=== PATIENT | male | born 1935 | race Caucasian/White ===

== ENCOUNTER 2016-10-07 08:36 | Emergency (ER) | payer MEDICARE, OTHER ==
[2016-10-07 09:09] VITALS: BP 169/71
--- NOTE | 2016-10-07 10:28 | RAD ---
HISTORY: Trauma to the first digit of the right foot COMPARISONS: May 06, 2016 VIEWS: 3, Frontal, lateral, and oblique views of the right foot FINDINGS: BONE DENSITY: Normal. BONES: There is no displaced fracture. There is remote posttraumatic deformity to the fifth metatarsal. There is no appreciable erosion or periosteal reaction. JOINTS: There is osteoarthritis of the first MTP and interphalangeal joint. . 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 ALIGNMENT: There is no dislocation. SOFT TISSUES: There is peripheral arterial calcification OTHER FINDINGS: None. IMPRESSION: 1. OSTEOARTHRITIS. 2. PERIPHERAL ARTERIAL DISEASE. 3. NO APPRECIABLE EROSION OR PERIOSTEAL REACTION. 4. NO ACUTE OSSEOUS INJURY. IF SYMPTOMS PERSIST, RECOMMEND REPEAT IMAGING
--- NOTE | 2016-10-07 11:33 | UC ---
Salina Aldrich SooYoung, [facility] on 10/07/16 at 0946 . Laceration HPI - HPI Summary HPI Summary: NOTE: Diabetic pt with 2.5 cm lac to R big toe. NURSE'S NOTE: this morning when getting out of the shower, pt stubbed right great toe on the floor and states he sliced it open and was bleeding profusely. his wrapped it up and he presents now with c/o right great toe laceration [ End ] IN ROOM NOTE: A 80 y/o M presents to [facility] [place] with c/o of lac to R big toe onset this AM. Pt states he stepped out of shower and hit his big toe. It split open and bled very heavily. The pt's wrapped his foot. He notes this happens somewhat often due to the neuropathy in his feet. Pert PMHx: DM, R foot fracture. - History Of Current Complaint Chief Complaint: UCLaceration Stated Complaint: TOE LAC Hx Obtained From: Patient, Family/Cloth Desizing Range Tender - Laceration Location: Toe - R great toe Mechanism Of Injury: Blunt Trauma Onset/Duration: Sudden Onset, Still Present Severity: Mild Pain Intensity: 0 - denies pain Pain Scale Used: 0-10 Numeric - Allergies/Home Medications Allergies/Adverse Reactions: Allergies Allergy/AdvReac Type Severity Reaction Status Date / Time No Known Allergies Allergy Verified 10/07/16 09:09 Home Medications: Home Medications Aspirin [Aspirin Childrens] 81 mg PO 10/07/16 [History] Simvastatin [Zocor 5 MG-] 5 mg PO DAILY 10/07/16 [History Confirmed 10/07/16] PMH/Surg Hx/FS Hx/Imm Hx Previously Healthy: No Endocrine History Of: Reports: Diabetes - INSULIN- LANTUS AND HUMALOG Denies: Thyroid Disease Cardiovascular History Of: Reports: Hypertension - ON MEDICATION FOR Denies: Cardiac Disorders Respiratory History Of: Denies: COPD, Asthma GI/ History Of: Denies: Ulcer - Surgical History Surgical History: Yes Surgery Procedure, Year, and Place: LEFT EYE CATARACT- 15 YEARS AGO- [facility] [place]. may 2016 - Family History Known Family History: Positive: Diabetes - Social History Occupation: Retired Lives: With Family Alcohol Use: Rare Substance Use Type: None Smoking Status (MU): Former Smoker Amount Used/How Often: PIPE X 3-4 PER DAY X 10 YEARS Have You Smoked in the Last Year: No When Did the Patient Quit Smoking/Using Tobacco: 1984 - Immunization History Most Recent Tetanus Shot: within 10 yrs Review of Systems Constitutional: Negative Skin: Negative Eyes: Negative ENT: Negative Respiratory: Negative Cardiovascular: Negative Gastrointestinal: Negative Genitourinary: Negative Motor: Negative Neurovascular: Negative Musculoskeletal: Other: - lac to great R toe Neurological: Negative Psychological: Negative All Other Systems Reviewed And Are Negative: Yes Physical Exam Triage Information Reviewed: Yes Appearance: Well-Appearing, No Pain Distress, Well-Nourished Vital Signs: Initial Vital Signs Temp 98.0 F 10/07/16 09:04 Pulse 77 10/07/16 09:04 Resp 16 10/07/16 09:04 BP 169/71 10/07/16 09:04 Pulse Ox 98 10/07/16 09:04 Vital Signs Reviewed: Yes Eyes: Positive: Conjunctiva Clear ENT: Positive: Hearing grossly normal, Pharynx normal, TMs normal. Negative: Muffled/hoarse voice Neck: Positive: Supple, No Lymphadenopathy Respiratory: Positive: Chest non-tender, Lungs clear, Normal breath sounds, No respiratory distress Cardiovascular: Positive: RRR, No Murmur Abdomen Description: Positive: Nontender, No Organomegaly, Soft Bowel Sounds: Positive: Present Musculoskeletal: Positive: Strength Intact, Other: - JAVED Neurological: Positive: Alert Psychological: Positive: Age Appropriate Behavior Skin: Positive: Other - 2.5 cm lac over dorsum of R big toe. Distal aspect of toe is slightly angulated volarly. There is a small spec of nail remaining on the toe. This is chronic. No signs of infection or swelling.. Negative: rashes Laceration Repair - Laceration Repair 1 Description: Linear Laceration Size After Repair: Length (cm) - 2.5 cm lac over dorsum of R big toe. Wound was open to approx 0.5 cm prior to closure. After adhesive was applied there was good approximation and hemostasis and less than 1 mm separation of wound edges. Cleansing Completed Via Routine Prep: Yes Irrigation With Pressure Irrigation Device: Yes Closure Material: Skin Adhesive Closure Method: Single Layer Diagnostics - Radiology FOOT XR Xray Interpretation: Positive (See Comments) - IMPRESSION: 1. OSTEOARTHRITIS. 2. PERIPHERAL ARTERIAL DISEASE. 3. NO APPRECIABLE EROSION OR PERIOSTEAL REACTION. 4. NO ACUTE OSSEOUS INJURY. IF SYMPTOMS PERSIST, RECOMMEND REPEAT IMAGING Radiology Interpretation Completed By: Radiologist Laceration Course/Dx - Course/Dx Course Of Treatment: MDM: laceration repair with adhesive. Non-adhesive dressing, splint and KATIE wrap were placed to protect the toe. I explained to pt the importance of keeping this protected especially since he is a diabetic, and the need to watch for infection. - Differential Dx - Laceration/Wound Differental Diagnoses: Fracture, Laceration Provider Diagnoses: Laceration of R big toe Discharge - Discharge Plan Condition: Stable Disposition: HOME Patient Education Materials: Skin Adhesive Care (ED) Referrals: Josep Cordero MD [Primary Care Provider] - Additional Instructions: WE DISCUSSED: APPLY A WARM WASHCLOTH TO AREA 3-4X PER DAY TO INCREASE CIRCULATION OF FOOT. KEEP THE FOOT GENTLY WRAPPED AND THE TOE SPLINTED FOR PROTECTION WHEN MOVING ABOUT OR SLEEPING. CHANGE THE DRESSING DAILY. FOLLOW UP WITH YOUR WEIGH BOX TENDER IN THE NEXT 10 DAYS. IF YOU NOTICE SIGNS OF INFECTION, SUCH RED STREAKING, SWELLING OR PAIN, GO TO THE EMERGENCY DEPARTMENT FOR EVALUATION. Call me here in 2 days if you have any questions or concerns. Because you don' t have stitches in the wound, it is subject to mechanical injury, and needs particular care. It will take 6 weeks for full strength to return to this wound healing. See instructions with reference to skin adhesive. The documentation as recorded by the Salina lozano SooYoung accurately reflects the service I personally performed and the decisions made by me, Ant Fontenot MD.
== END 2016-10-07 11:30 | disposition home or self-care (01) ==
LOC: UCEAST 08:36
DX: S91.111A Laceration without foreign body of right great toe without damage to nail, initial encounter (principal); E11.9 Type 2 diabetes mellitus without complications; Z79.4 Long term (current) use of insulin; W22.8XXA Striking against or struck by other objects, initial encounter; Y92.9 Unspecified place or not applicable
CPT/HCPCS: 12001; 99211; G0463

== ENCOUNTER 2017-04-14 06:58 | Emergency (ER) | payer MEDICARE, OTHER ==
[2017-04-14] MEDS ORDERED: Ondansetron INJ* 2 MG/ML VIAL IV ONE (07:33)
[2017-04-14] MEDS ORDERED: NS 0.9% 1000 ML* 1,000 ML IV ONE (07:33)
[2017-04-14] MEDS ORDERED: Aspirin Low Dose CHEW TAB* 81 MG PO ONE (07:33)
[2017-04-14 08:11] LABS: Hematocrit 41 % (42-52); Hemoglobin 13.9 g/dl (14.0-18.0); Mean Corpuscular HGB Conc 34 g/dl (31-36); Mean Corpuscular Hemoglobin 32 pg (27-31); Mean Corpuscular Volume 95 fL (80-94); Mean Platelet Volume 8 um3 (7.4-10.4); Red Blood Count 4.31 10^6/ul (4.0-5.4); Red Cell Distribution Width 14 % (10.5-15); White Blood Count 11.2 10^3/ul (3.5-10.8)
[2017-04-14 08:18] LABS: ALT 16 U/L (7-52); AST 16 U/L (13-39); Albumin 3.7 g/dL (3.2-5.2); Alkaline Phosphatase 51 U/L (34-104); Amylase 45 U/L (29-103); Anion Gap 6 mmol/L (2-11); BUN/Creatinine Ratio 27.5 (8-20); Blood Urea Nitrogen 19 mg/dL (6-24); CO2 Carbon Dioxide 29 mmol/L (22-32); Chloride 104 mmol/L (101-111); Creatine Kinase 85 U/L (10-223); EGFR African American 141.5 (>60); Globulin 2.7 g/dL (2-4); Glucose 196 mg/dL (70-100); Lipase < 10 U/L (11.0-82.0); Sodium 139 mmol/L (133-145); Total Protein 6.4 g/dL (6.4-8.9)
[2017-04-14 08:20] LABS: Troponin I 0.01 ng/mL (<0.04)
--- NOTE | 2017-04-14 08:27 | RAD ---
HISTORY: Nausea, palpitations COMPARISONS: None VIEWS:1: Single frontal portable view of the chest at 8:05 AM FINDINGS: LINES AND TUBES: None. CARDIOMEDIASTINAL SILHOUETTE: The cardiomediastinal silhouette is normal for portable technique. PLEURA: The costophrenic angles are sharp. No pleural abnormalities are noted. LUNG PARENCHYMA: There is hyperinflation. ABDOMEN: The upper abdomen is clear. There is no subphrenic gas. BONES AND SOFT TISSUES: No bone or soft tissue abnormalities are noted. IMPRESSION: COPD. NO ACTIVE CARDIOPULMONARY DISEASE.
[2017-04-14 12:41] VITALS: BP 169/64
--- NOTE | 2017-04-14 22:43 | ED ---
Antonio Aldrich Alfonso, scribed for Griselda Reese MD on 04/14/17 at 0748 . Complex/Multi-Sys Presentation - HPI Summary HPI Summary: This patient is an 81 year old M presenting [facility] accompanied by with a chief complaint of nausea since 0500 this morning. Pt states he was feeling very strange and I thought it might be a heart attack. Pt rates the pain 0/10 in severity. Symptoms aggravated by nothing and alleviated by rest. Pt reports palpitations, and loss of appetite. Pt denies abdominal pain, CP, headache, dizziness, and trouble with speech. Pt checks blood glucose 7 times a day and takes insulin with each meal. 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 Denies PMHx of [place]. PMHx of Type 1 Diabetes mellitus since 1961. - History Of Current Complaint Chief Complaint: EDNauseaVomitDiarrh Time Seen by Provider: 04/14/17 07:31 Hx Obtained From: Patient Onset/Duration: Sudden Onset, Lasting Hours - Since 0500 this morning, Still Present Timing: Constant Severity Currently: Mild Severity Initially: Mild Location: Negative Character: Unable To Describe Aggravating Factor(s): Nothing Alleviating Factor(s): Rest. Associated Signs And Symptoms: Positive: Palpitations, Nausea, Decreased Oral Intake, Other - Pt reports palpitations, and loss of appetite. Pt denies abdominal pain, CP, headache, dizziness, and trouble with speech. - Allergies/Home Medications Allergies/Adverse Reactions: Allergies Allergy/AdvReac Type Severity Reaction Status Date / Time No Known Allergies Allergy Verified 12/12/16 09:25 Home Medications: Home Medications Atorvastatin* 10 mg PO BEDTIME 04/14/17 [History Confirmed 04/14/17] PMH/Surg Hx/FS Hx/Imm Hx Endocrine/Hematology History: Reports: Hx Diabetes - Type I, not on pump: INSULIN- LANTUS AND HUMALOG Denies: Hx Thyroid Disease Cardiovascular History: Reports: Hx Hypertension Denies: Hx Pacemaker/ICD Respiratory History: Denies: Hx Asthma, Hx Chronic Obstructive Pulmonary Disease (COPD) GI History: Denies: Hx Ulcer Sensory History: Reports: Hx Cataracts - BILATERAL, Hx Contacts or Glasses - GLASSES-READING Denies: Hx Hearing Aid Opthamlomology History: Reports: Hx Cataracts - BILATERAL, Hx Contacts or Glasses - GLASSES-READING Psychiatric History: Denies: Hx Panic Disorder - Surgical History Surgery Procedure, Year, and Place: LEFT EYE CATARACT- 15 YEARS AGO[place] [facility] [place] Hx Anesthesia Reactions: No Infectious Disease History: No Infectious Disease History: Denies: Hx Clostridium Difficile, Hx Hepatitis, Hx Human Immunodeficiency Virus (HIV), Hx of Known/Suspected MRSA, Hx Shingles, Hx Tuberculosis, Hx Known/ Suspected VRE, Hx Known/Suspected VRSA, History Other Infectious Disease, Traveled Outside the [place] in Last 30 Days - Family History Known Family History: Positive: Diabetes - Social History Alcohol Use: Rare Substance Use Type: Reports: None Smoking Status (MU): Former Smoker Amount Used/How Often: PIPE X 3-4 PER DAY X 10 YEARS Have You Smoked in the Last Year: No Review of Systems Constitutional: Negative Positive: Palpitations. Negative: Chest Pain Respiratory: Negative Positive: Nausea, Other - Positive loss of appetite. Negative: Abdominal Pain Musculoskeletal: Negative Skin: Negative Neurological: Other - Negative dizziness and trouble with speech. Negative: Headache Psychological: Normal All Other Systems Reviewed And Are Negative: Yes Physical Exam Triage Information Reviewed: Yes Vital Signs On Initial Exam: Initial Vitals Temp Pulse Resp BP Pulse Ox 97.9 F 80 18 177/58 96 04/14/17 07:00 04/14/17 07:00 04/14/17 07:00 04/14/17 07:00 04/14/17 07:00 Vital Signs Reviewed: Yes Appearance: Positive: No Pain Distress, Well-Nourished, Ill-Appearing Skin: Positive: Warm, Skin Color Reflects Adequate Perfusion Head/Face: Positive: Normal Head/Face Inspection Eyes: Positive: Conjunctiva Clear ENT: Positive: Normal ENT inspection Neck: Positive: Supple, Nontender, No Lymphadenopathy Respiratory/Lung Sounds: Positive: Clear to Auscultation, Breath Sounds Present Cardiovascular: Positive: RRR, Pulses are Symmetrical in both Upper and Lower Extremities. Negative: Murmur Abdomen Description: Positive: Nontender, No Organomegaly, Soft Bowel Sounds: Positive: Present Musculoskeletal: Positive: Strength/ROM Intact. Negative: Lynda Sign Left, Lynda Sign Right, Edema Left, Edema Right Neurological: Positive: Sensory/Motor Intact, Alert, Oriented to Person Place, Time, CN Intact II-III, Speech Normal. Negative: Facial Droop, Focal Deficit @ , Slurred Speech Psychiatric: Positive: Affect/Mood Appropriate - Warren Coma Scale Coma Scale Total: 15 Diagnostics - Vital Signs Vital Signs Temp Pulse Resp BP Pulse Ox 04/14/17 07:30 78 12 160/56 99 04/14/17 07:23 80 17 96 04/14/17 07:20 178/60 04/14/17 07:17 97.8 F 79 16 178/60 98 04/14/17 07:00 97.9 F 80 18 177/58 96 - Laboratory Lab Results: Lab Results 04/14/17 04/14/17 04/14/17 Range/Units 07:55 07:55 07:55 WBC 11.2 H (3.5-10.8) 10^3/ul RBC 4.31 (4.0-5.4) 10^6/ul Hgb 13.9 L (14.0-18.0) g/dl Hct 41 L (42-52) % MCV 95 H (80-94) fL MCH 32 H (27-31) pg MCHC 34 (31-36) g/dl RDW 14 (10.5-15) % Plt Count 181 (150-450) 10^3/ul MPV 8 (7.4-10.4) um3 Neut % (Auto) 83.5 H (38-83) % Lymph % (Auto) 9.1 L (25-47) % Pike % (Auto) 4.6 (1-9) % Eos % (Auto) 2.0 (0-6) % Baso % (Auto) 0.8 (0-2) % Absolute Neuts (auto) 9.3 H (1.5-7.7) 10^3/ul Absolute Lymphs (auto) 1.0 (1.0-4.8) 10^3/ul Absolute Monos (auto) 0.5 (0-0.8) 10^3/ul Absolute Eos (auto) 0.2 (0-0.6) 10^3/ul Absolute Basos (auto) 0.1 (0-0.2) 10^3/ul Absolute Nucleated RBC 0.01 10^3/ul Nucleated RBC % 0 INR (Anticoag Therapy) 0.86 L (0.89-1.11) APTT 29.0 (26.0-36.3) seconds D-Dimer, Quantitative < 200 (Less Than 230) ng/mL Sodium 139 (133-145) mmol/L Potassium 4.0 (3.5-5.0) mmol/L Chloride 104 (101-111) mmol/L Carbon Dioxide 29 (22-32) mmol/L Anion Gap 6 (2-11) mmol/L BUN 19 (6-24) mg/dL Creatinine 0.69 (0.67-1.17) mg/dL Est GFR ( Amer) 141.5 (>60) Est GFR (Non-Af Amer) 110.0 (>60) BUN/Creatinine Ratio 27.5 H (8-20) Glucose 196 H (70-100) mg/dL Lactic Acid (0.5-2.0) mmol/L Calcium 9.0 (8.6-10.3) mg/dL Magnesium 2.0 (1.9-2.7) mg/dL Total Bilirubin 0.80 (0.2-1.0) mg/dL AST 16 (13-39) U/L ALT 16 (7-52) U/L Alkaline Phosphatase 51 (34-104) U/L Total Creatine Kinase 85 (10-223) U/L CK-MB (CK-2) 5.0 (0.6-6.3) ng/mL Troponin I 0.01 (<0.04) ng/mL B-Natriuretic Peptide ( - 100) pg/mL Total Protein 6.4 (6.4-8.9) g/dL Albumin 3.7 (3.2-5.2) g/dL Globulin 2.7 (2-4) g/dL Albumin/Globulin Ratio 1.4 (1-3) Amylase 45 (29-103) U/L Lipase < 10 L (11.0-82.0) U/L TSH 2.30 (0.34-5.60) mcIU/mL 04/14/17 04/14/17 Range/Units 07:55 07:55 WBC (3.5-10.8) 10^3/ul RBC (4.0-5.4) 10^6/ul Hgb (14.0-18.0) g/dl Hct (42-52) % MCV (80-94) fL MCH (27-31) pg MCHC (31-36) g/dl RDW (10.5-15) % Plt Count (150-450) 10^3/ul MPV (7.4-10.4) um3 Neut % (Auto) (38-83) % Lymph % (Auto) (25-47) % Pike % (Auto) (1-9) % Eos % (Auto) (0-6) % Baso % (Auto) (0-2) % Absolute Neuts (auto) (1.5-7.7) 10^3/ul Absolute Lymphs (auto) (1.0-4.8) 10^3/ul Absolute Monos (auto) (0-0.8) 10^3/ul Absolute Eos (auto) (0-0.6) 10^3/ul Absolute Basos (auto) (0-0.2) 10^3/ul Absolute Nucleated RBC 10^3/ul Nucleated RBC % INR (Anticoag Therapy) (0.89-1.11) APTT (26.0-36.3) seconds D-Dimer, Quantitative (Less Than 230) ng/mL Sodium (133-145) mmol/L Potassium (3.5-5.0) mmol/L Chloride (101-111) mmol/L Carbon Dioxide (22-32) mmol/L Anion Gap (2-11) mmol/L BUN (6-24) mg/dL Creatinine (0.67-1.17) mg/dL Est GFR ( Amer) (>60) Est GFR (Non-Af Amer) (>60) BUN/Creatinine Ratio (8-20) Glucose (70-100) mg/dL Lactic Acid 1.0 (0.5-2.0) mmol/L Calcium (8.6-10.3) mg/dL Magnesium (1.9-2.7) mg/dL Total Bilirubin (0.2-1.0) mg/dL AST (13-39) U/L ALT (7-52) U/L Alkaline Phosphatase (34-104) U/L Total Creatine Kinase (10-223) U/L CK-MB (CK-2) (0.6-6.3) ng/mL Troponin I (<0.04) ng/mL B-Natriuretic Peptide 101 H ( - 100) pg/mL Total Protein (6.4-8.9) g/dL Albumin (3.2-5.2) g/dL Globulin (2-4) g/dL Albumin/Globulin Ratio (1-3) Amylase (29-103) U/L Lipase (11.0-82.0) U/L TSH (0.34-5.60) mcIU/mL Result Diagrams: 04/14/17 07:55 04/14/17 07:55 Lab Statement: Any lab studies that have been ordered have been reviewed, and results considered in the medical decision making process. - Radiology CXR Radiology Interpretation Completed By: Radiologist - COPD. NO ACTIVE CARDIOPULMONARY DISEASE. - EKG 0948 Cardiac Rate: NL - BPM 80 EKG Rhythm: Sinus Rhythm Ectopy: PACs EKG Interpretation: Normal IV and AV conduction times. Normal QTc. Normal axis. EKG Comparison: Other - No prior EKG to compare. Re-Evaluation - Re-Evaluation First Eval Re-Evaluation Time: 12:39 Comment: Discussed labs with patient. Pt understands and is agreeable with the discharge plan. Complex Multi-Symp Course/Dx Assessment/Plan: 81 year old M presents to the ED with a CC of nausea since 0500 this morning. Pt reports palpitations, and loss of appetite. Pt denies abdominal pain, CP, headache, dizziness, and trouble with speech. Pt checks blood glucose 7 times a day and takes insulin with each meal. 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 PMHx of Type 1 Diabetes mellitus since 1961. CXR reveals COPD. An EKG reveals NSR and PACs. Blood work shows WBC 11.2, _. UA shows _. Patient will be discharged with follow up from Dr. Cordero (PCP). Pt is agreeable with this plan. Pt medications reviewed this visit. - Diagnoses Differential Diagnoses/HQI/PQRI: Cardiac Ischemia, Metabolic Abnormality Provider Diagnoses: Heart palpitations, Nausea alone, Type 1 diabetes mellitus Discharge - Discharge Plan Condition: Stable Disposition: HOME Patient Education Materials: Type 1 Diabetes in Adults (ED), Acute Nausea and Vomiting (ED) Referrals: Josep Cordero MD [Primary Care Provider] - 2 Days Additional Instructions: Your lab studies, EKG and CXR did not show any acute abnormalities that require further work up in the hospital. Have definite follow up with Dr. Cordero in the next 2-3 days. Return to the ER if you have any new or worsening symptoms. The documentation as recorded by the Antonio lozano Alfonso accurately reflects the service I personally performed and the decisions made by , Griselda Reese MD.
== END 2017-04-14 12:52 | disposition home or self-care (01) ==
LOC: ED 06:58
DX: R00.2 Palpitations (principal); R11.0 Nausea; E10.9 Type 1 diabetes mellitus without complications; Z79.4 Long term (current) use of insulin; I10 Essential (primary) hypertension; Z87.891 Personal history of nicotine dependence
CPT/HCPCS: 36415; 71010; 80053; 82150; 82550; 82553; 83605; 83690; 83735; 83880; 84443; 84484; 85025; 85379; 85610; 85730; 93005; 96361; 96374; 99283; A9270-GY; J2405

== ENCOUNTER 2018-07-01 10:46 | Emergency (ER) | payer MEDICARE, OTHER ==
--- NOTE | 2018-07-01 11:12 | ED ---
Neurological HPI - HPI Summary HPI Summary: Time seen by provider: 1112 This patient is an 82 year old M BIBA to ED with a chief complaint of weakness in the L arm since in the morning lasting 1-2 minutes. The patient woke up at 0200 to go to the bathroom. His L hand felt numb and when he tried to use it, it didnt function properly. He was unsure of where he was grasping. In the morning, he noticed it was challenging to button his shirt this morning. The patient rates the pain 0/10 in severity. Symptoms aggravated by nothing. Symptoms alleviated by spontaneous resolution. Patient reports light-headed. Patient denies vertigo and vision changes. Denies hx of stroke. Patient is also on Plavix. - History of Current Complaint Chief Complaint: EDNeurologicalDeficit Stated Complaint: POSSIBLE CVA Time Seen by Provider: 07/01/18 10:53 Hx Obtained From: Patient Onset/Duration: Sudden Onset, Started hours ago, Resolved Timing: Sudden Onset Current Severity: None Neurological Deficit Location: LUE Pain Intensity: 0 Pain Scale Used: 0-10 Numeric Aggravating: Nothing Alleviating: Spontanious Resolution Associated Signs and Symptoms: Positive: Weakness - weakness in the L arm, L hand numbness, light-headed; denies vertigo and vision changes - Allergy/Home Medications Allergies/Adverse Reactions: Allergies Allergy/AdvReac Type Severity Reaction Status Date / Time No Known Allergies Allergy Verified 05/05/18 10:28 Home Medications: Home Medications Clopidogrel TAB* [Plavix TAB*] 75 mg PO DAILY 07/01/18 [History Confirmed ] Tamsulosin CAP* [Flomax CAP*] 0.4 mg PO BEDTIME 07/01/18 [History Confirmed ] PMH/Surg Hx/FS Hx/Imm Hx Endocrine/Hematology History: Reports: Hx Diabetes - Type I, 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: INSULIN- LANTUS AND HUMALOG Denies: Hx Thyroid Disease Cardiovascular History: Reports: Hx Hypertension Denies: Hx Pacemaker/ICD Respiratory History: Denies: Hx Asthma, Hx Chronic Obstructive Pulmonary Disease (COPD) GI History: Denies: Hx Ulcer History: Denies: Hx Dialysis, Hx Renal Disease Sensory History: Reports: Hx Cataracts - BILATERAL, Hx Contacts or Glasses - GLASSES-READING Denies: Hx Hearing Aid Opthamlomology History: Reports: Hx Cataracts - BILATERAL, Hx Contacts or Glasses - GLASSES-READING Psychiatric History: Denies: Hx Panic Disorder - Surgical History Surgery Procedure, Year, and Place: LEFT EYE CATARACT- 15 YEARS AGO- [facility] [place]. may 2016 Hx Anesthesia Reactions: No Infectious Disease History: No Infectious Disease History: Denies: Hx Clostridium Difficile, Hx Hepatitis, Hx Human Immunodeficiency Virus (HIV), Hx of Known/Suspected MRSA, Hx Shingles, Hx Tuberculosis, Hx Known/ Suspected VRE, Hx Known/Suspected VRSA, History Other Infectious Disease, Traveled Outside the [place] in Last 30 Days - Family History Known Family History: Positive: Diabetes - Social History Alcohol Use: Weekly Substance Use Type: Reports: None Smoking Status (MU): Former Smoker Amount Used/How Often: PIPE X 3-4 PER DAY X 10 YEARS Have You Smoked in the Last Year: No Review of Systems Positive: Other - denies vision changes Neurological: Other - light-headed; denies vertigo Positive: Weakness - weakness in the L arm, Numbness - L hand numbness All Other Systems Reviewed And Are Negative: Yes Physical Exam - Summary Physical Exam Summary: Appearance: Well appearing, no pain distress Skin: warm, dry, reflects adequate perfusion, scar on the R side of chest Head/face: normal Eyes: EOMI, FLYNN ENT: normal Neck: supple, non-tender Respiratory: CTA, breath sounds present Cardiovascular: RRR, pulses symmetrical Abdomen: non-tender, soft Bowel: present Musculoskeletal: normal, strength/ROM intact Neuro: normal, sensory motor intact, A&Ox3 GCS: 15 Triage Information Reviewed: Yes Vital Signs On Initial Exam: Initial Vitals Pulse Resp BP Pulse Ox 85 26 174/67 98 07/01/18 10:55 07/01/18 10:55 07/01/18 10:55 07/01/18 10:55 Vital Signs Reviewed: Yes Diagnostics - Vital Signs Vital Signs Temp Pulse Resp BP Pulse Ox 07/01/18 11:00 86 16 98 07/01/18 10:59 98.5 F 83 16 174/67 98 07/01/18 10:55 85 26 174/67 98 - Laboratory Result Diagrams: 07/01/18 11:32 07/01/18 11:32 Lab Statement: Any lab studies that have been ordered have been reviewed, and results considered in the medical decision making process. - CT Brain CT CT Interpretation Completed By: Radiologist - NO ACUTE INTRACRANIAL PATHOLOGY. ED physician has reviewed this radiology report. Head CTA CT Interpretation Completed By: Radiologist - 1. ATHEROMATOUS DISEASE. 2. STATUS POST RIGHT INTERNAL CAROTID ARTERY STENTING, DESCRIBED ABOVE. 3. NO ANEURYSM, VASCULAR MALFORMATION, OCCLUSION, OR STENOSIS OF THE VISUALIZED INTRACRANIAL CIRCULATION. ED physician has reviewed this radiology report. - EKG 1116 Cardiac Rate: NL - 85 BPM EKG Rhythm: Sinus Rhythm EKG Interpretation: No acute changes NIH Scale - NIH Scale Level of Consciousness: Alert/Keenly Responsive Ask Patient the Month and His/Her Age: Both Correct Ask Pt to Open/Close Eyes and Occupational Therapist'S Assistant/Release Non-Paretic Hand: Both Correctly Best Gaze (Only Horizontal Eye Movement): Normal Visual Field Testing: No Visual Loss Facial Paresis-Pt to Smile & Close Eyes or Grimace Symmetry: Normal/Symmetrical Motor Function - Right Arm: No Drift-Holds 10 Seconds Motor Function - Left Arm: No Drift-Holds 10 Seconds Motor Function - Right Leg: No Drift-Holds 10 Seconds Motor Function - Left Leg: No Drift-Holds 10 Seconds Limb Ataxia-Must be out of Proportion to Weakness Present: Absent Sensory (Use Pinprick to Test Arms/Legs/Trunk/Face): Normal Best Language (Describe Picture, Name Items): No Aphasia Dysarthria (Read Several Words): Normal Extinction and Inattention: No Abnormality Total Score: 0 Re-Evaluation - Re-Evaluation First Eval Re-Evaluation Time: 11:14 Comment: Re-evaluated the patient. Second Eval Re-Evaluation Time: 14:41 Comment: Discussed results with the patient. Told the patient that the neurologist will be coming to see him. Third Eval Re-Evaluation Time: 15:16 Comment: Discuss plan for discharge. Patient understands and agrees with this plan. Course/Dx - Course Assessment/Plan: This patient is an 82 year old M BIBA to ED with a chief complaint of weakness in the L arm since in the morning lasting 1-[address] Du at 1108 who recommends to get a CT and to talk to the vascular surgeon yue. Brain CT reveals NO ACUTE INTRACRANIAL PATHOLOGY. Head CTA reveals 1. ATHEROMATOUS DISEASE. 2. STATUS POST RIGHT INTERNAL CAROTID ARTERY STENTING, DESCRIBED ABOVE. 3. NO ANEURYSM, VASCULAR MALFORMATION, OCCLUSION, OR STENOSIS OF THE VISUALIZED INTRACRANIAL CIRCULATION. In the ED course, the patient was given fluids. Blood work/UA obtained. This patient will be discharged. Patient understands and agrees with this plan. - Differential Dx Differential Diagnoses Neuro: Positive: Cerebrovascular Accident, Intracranial Bleed, Transient Ischemic Attack - Diagnoses Provider Diagnoses: TIA (transient ischemic attack) - Physician Notifications Discussed Care Of Patient With: Mirtha Du Time Discussed With Above Provider: 11:08 Instructed by Provider To: Other - Consulted Dr. Du who recommends to get a CT and to talk to the vascular surgeon yue. Consulted GARRET Lorenzana, at [facility] at 1159 about the patient's case and she said she will consult with Dr. La ( the provider who did surgery on the patient). Consulted Harriett again at 1214 who says to get a CT head/neck. Consulted Harriett at 1413 who says to call Dr. La directly. Consulted Dr. La at 1419 who says that there is nothing vascular- barrett that could be done for the patient. Consulted Dr. Perales at 1436 who says that he will come see the patient in the ED. - Critical Care Time Critical Care Time: 30-74 min Discharge - Sign-Out/Discharge Documenting (check all that apply): Patient Departure - discharge - Discharge Plan Condition: Stable Disposition: HOME Prescriptions: Aspirin TAB* [Aspirin 325 MG TAB*] 325 mg PO DAILY #30 tab Patient Education Materials: Transient Ischemic Attack (ED) Referrals: Josep Cordero MD [Medical Doctor] - 3 Days Additional Instructions: PLEASE RETURN TO THE ED FOR ANY NEW OR WORSENING SYMPTOMS. - Billing Disposition and Condition Condition: STABLE Disposition: Home - Attestation Statements Document Initiated by Rachel: Yes Documenting Scribe: Daryl Lemus Provider For Whom Rachel is Documenting (Include Credential): Parveen Trujillo MD Scribe Attestation: Daryl Aldrich scribed for Parveen Trujillo MD on 07/01/18 at 1547. Scribe Documentation Reviewed: Yes Provider Attestation: The documentation as recorded by the Daryl lozano accurately reflects the service I personally performed and the decisions made by me, Parveen Trujillo MD
[2018-07-01] MEDS ORDERED: NS 0.9% 1000 ML* 1,000 ML IV SCH (11:15)
--- NOTE | 2018-07-01 11:39 | RAD ---
HISTORY: cva COMPARISONS: May 05, 2018 TECHNIQUE: Multiple contiguous axial CT scans were obtained of the head without intravenous contrast. FINDINGS: HEMORRHAGE/INFARCT: There is no hemorrhage or acute infarct. MASSES/SHIFT: There is no mass or shift. EXTRA-AXIAL SPACES: There are no extra-axial fluid collections. SULCI AND VENTRICLES: The sulci and ventricles are normal in size and position for the patient's stated age. CEREBRUM: There are no focal parenchymal abnormalities. BRAINSTEM: There are no focal parenchymal abnormalities. CEREBELLUM: There are no focal parenchymal abnormalities. VESSELS: The vessels are grossly normal. PARANASAL SINUSES: The paranasal sinuses are clear. ORBITS: The orbits are unremarkable. BONES AND SOFT TISSUE: No bone or soft tissue abnormalities are noted. OTHER: None IMPRESSION: NO ACUTE INTRACRANIAL PATHOLOGY.
[2018-07-01 12:12] LABS: ABS Basophils 0.1 10^3/ul (0-0.2); ABS Eosinophils 0.1 10^3/ul (0-0.6); ABS Lymphocytes 0.7 10^3/ul (1.0-4.8); ABS Monocytes 0.5 10^3/ul (0-0.8); ABS Neutrophils 5.6 10^3/ul (1.5-7.7); ABS Nucleated RBC 0 10^3/ul; Eosinophil % 1.8 % (0-6); Hematocrit 35 % (42-52); Lymphocyte % 9.7 % (25-47); Mean Corpuscular HGB Conc 35 g/dl (31-36); Mean Corpuscular Hemoglobin 32 pg (27-31); Mean Corpuscular Volume 93 fL (80-94); Mean Platelet Volume 7.7 um3 (7.4-10.4); Nucleated Red Blood Cells % 0; Platelet Count 352 10^3/ul (150-450); Red Blood Count 3.74 10^6/ul (4.00-5.40); Red Cell Distribution Width 14 % (10.5-15)
[2018-07-01 12:31] LABS: EGFR Non-African American 92.5 (>60)
[2018-07-01 12:43] LABS: INR 0.91 (0.77-1.02)
[2018-07-01] MEDS ORDERED: Iodixanol* (CONTRAST) 320 MG/ML 100 ML SDV IV ONE (12:55)
--- NOTE | 2018-07-01 14:02 | RAD ---
HISTORY: lf hand numbness/cva COMPARISONS: May 05, 2018, head CT dated July 01, 2018 TECHNIQUE: Multiple contiguous axial CT scans were obtained of the head and neck after the administration of nonionic intravenous contrast timed to the systemic arterial phase of contrast enhancement. Coronal and sagittal multiplanar reformations are submitted for review. Multiple 3-D maximum intensity projection reconstructions are also submitted for review. FINDINGS: CTA NECK: AORTIC ARCH: There is a normal three-vessel branching pattern of the aortic arch. There is no ostial or proximal stenosis of the cephalic great vessels. RIGHT VERTEBRAL ARTERY: The right vertebral artery is patent along its course, without stenosis. LEFT VERTEBRAL ARTERY: The left vertebral artery is patent along its course, without stenosis. DOMINANCE: The vertebral arteries are codominant. RIGHT COMMON CAROTID ARTERY: The right common carotid artery is patent. The right carotid bifurcation occurs at C4 RIGHT INTERNAL CAROTID ARTERY: There has been interval endovascular stenting of the right internal carotid artery. There is a waist of the stent at the area of atheromatous plaque. Based on the luminal diameter, this is 50% stenosis by NASCET criteria. There is no appreciable intimal hyperplasia/and stent restenosis. RIGHT EXTERNAL CAROTID ARTERY: The right external carotid artery is unremarkable. LEFT COMMON CAROTID ARTERY: The left common carotid artery is patent. The left carotid bifurcation occurs at C4-C5 LEFT INTERNAL CAROTID ARTERY: There is no left internal carotid artery stenosis by NASCET criteria. LEFT EXTERNAL CAROTID ARTERY: The left external carotid artery is unremarkable. VENOUS CIRCULATION: The venous system is unremarkable. SALIVARY GLANDS: The parotid glands, submandibular glands, sublingual glands are normal. NASAL CAVITY/NASOPHARYNX: The nasal cavity and nasopharynx are normal. ORAL CAVITY/OROPHARYNX: The oral cavity is obscured by streak artifact from dental amalgam. The visualized oral cavity and oropharynx are unremarkable. LARYNGEAL APPARATUS/HYPOPHARYNX: The laryngeal apparatus and hypopharynx are normal. UPPER AIRWAY/UPPER ESOPHAGUS: The visualized upper airway and esophagus are normal. LUNG APICES: The lung apices are clear. THYROID GLAND: The thyroid gland is normal. LYMPH NODES: There is no lymphadenopathy by size criteria. BONES AND SOFT TISSUES: No bone or soft tissue abnormalities are noted. CTA HEAD: INTRACRANIAL CIRCULATION: There is no aneurysm, vascular malformation, occlusion, or stenosis of the visualized intracranial circulation. The anterior communicating artery complex is clear. Bilateral posterior communicating arteries are identified. VENOUS CIRCULATION: The venous system is unremarkable. PERFUSION: There is no obvious parenchymal perfusion deficit. HEMORRHAGE/INFARCT: There is no hemorrhage or acute infarct. MASSES/SHIFT: There is no mass or shift. EXTRA-AXIAL SPACES: There are no extra-axial fluid collections. SULCI AND VENTRICLES: There is mild diffuse and proportional enlargement of the sulci and ventricles. CEREBRUM: There are no focal parenchymal abnormalities. BRAINSTEM: There are no focal parenchymal abnormalities. CEREBELLUM: There are no focal parenchymal abnormalities. PARANASAL SINUSES: The paranasal sinuses are clear. ORBITS: The orbits are unremarkable. BONES AND SOFT TISSUE: No bone or soft tissue abnormalities are noted. OTHER: There is no abnormal enhancement. IMPRESSION: 1. ATHEROMATOUS DISEASE. 2. STATUS POST RIGHT INTERNAL CAROTID ARTERY STENTING, DESCRIBED ABOVE. 3. NO ANEURYSM, VASCULAR MALFORMATION, OCCLUSION, OR STENOSIS OF THE VISUALIZED INTRACRANIAL CIRCULATION. CPT II Codes: 3100F.
[2018-07-01] MEDS ORDERED: Aspirin TAB* 325 MG PO ONE (15:05)
[2018-07-01 15:35] VITALS: BP 142/75
[2018-07-01 15:58] LABS: Urine Appearance Clear; Urine Blood Negative (Negative); Urine Color Yellow; Urine Ketones 1+ (Negative); Urine Protein Negative (Negative); Urine Specific Gravity 1.014 (1.010-1.030); Urine Urobilinogen Negative (Negative)
[2018-07-01 16:03] LABS: Urine Red Blood Cell 2+(6-10/hpf) (Absent); Urine White Blood Cell 1+(6-10/hpf) (Absent)
--- NOTE | 2018-07-01 21:54 | CONS ---
CC: Dr. Du; Dr. Agustin; Dr. La, [facility] Vascular Surgery Department * NEUROLOGY CONSULTATION: DATE OF CONSULT: 07/01/18 - EMERGENCY DEPT LOCATION: He is in the emergency room. REFERRING PHYSICIAN: Dr. Trujillo. CHIEF COMPLAINT: Episode of left hand numbness. HISTORY OF PRESENT ILLNESS: Ran Arreguin is an 82-year-old right-handed man , who underwent right carotid stenting about 3 weeks ago. Last evening, he got up to go to the bathroom at about 2 in the morning and felt somewhat dizzy. He noted some numbness in his left hand. It resolved in a minute or so and he went back to bed. He woke up this morning and was getting dressed and he noticed he could not handle the buttons with his left hand properly. It lasted perhaps 15 minutes or less and resolved. He is at [facility] in the nursing unit and was sent to the emergency room for evaluation. He had a CT angiogram of the head and neck, which I reviewed. It shows the stent is in place and there is a residual 50% stenosis. The study is otherwise unremarkable. He had a CT of the brain today as well, which I reviewed and it is interpreted as normal. I reviewed the images as well as his preoperative CTA and I agree. There was some suggestion that he might have been hypotensive at [facility], but I have no record of that and the patient does not think he was hypotensive. He said his blood pressure was up and down postoperatively and that is why he was kept longer at the [facility], but other than that he has not had any problems with his blood pressure recently. With the episode of left hand dysfunction, he did not have any numbness of his face or new numbness of his legs or new weakness. There was no change in vision or speech. PAST MEDICAL HISTORY: Notable for insulin requiring diabetes for 50 years. He has a pretty severe polyneuropathy associated with it. He has diabetic retinopathy and has had multiple laser surgeries. He has a history of hypertension. MEDICATIONS: At home consist of: 1. Lantus insulin. 2. Lisinopril 20 mg p.o. daily. 3. Hydrochlorothiazide 12.5 mg p.o. daily. 4. Proscar 5 mg p.o. daily. 5. Atorvastatin 10 mg p.o. q.h.s. 6. Aspirin 81 mg p.o. daily. 7. Plavix 75 mg p.o. daily. 8. Tamsulosin 0.4 mg p.o. q.h.s. ALLERGIES: He does not have any drug allergies. PHYSICAL EXAM: He is thin, but well hydrated. Temperature in the emergency room 98.5, blood pressure initially was 174/67 and most recently 166/73. Heart rate is in the 70s and regular. Respiratory rate is 20 and oxygen saturation is 100% on room air. Neurologic Exam: Pupils react equally from about 4 to 3 mm. He has extensive retinal scarring bilaterally. Eye movements are normal. Visual fu are full otherwise. Facial musculature is symmetric. Facial sensation to light touch and pin is symmetric. Tongue protrudes in the midline and palate rises symmetrically. Speech is clear. Motor exam reveals distal weakness with left greater than right foot drops and intrinsic hand muscle weakness. He has normal strength proximally in the limbs. Sensory exam to pin is symmetrical in the legs and arms as well as to light touch. He is alert and oriented and an excellent detailed historian. Memory is intact and language is fluent. LABORATORY DATA: Other laboratory data from today notable for a CBC with a hemoglobin of 12.0 and otherwise unremarkable CBC. Chemistry profile notable for a sodium of 131, glucose 259. INR today is 0.91, PTT 25.8. IMPRESSION AND PLAN: Impression is that of possible left middle cerebral artery or internal carotid artery transient ischemic attack. He is on low dose aspirin therapy and Plavix. Some patients are aspirin resistant and I do not think there is an indication for anticoagulation, so I recommend increasing aspirin to 324 mg plus Plavix. I discussed my recommendation with Ran Arreguin. I will discuss the case with Dr. Du, who is his regular outpatient neurologist as well. [id number]/[facility] #: [id number] [facility]
== END 2018-07-01 15:34 | disposition home or self-care (01) ==
LOC: ED 10:46
DX: G45.9 Transient cerebral ischemic attack, unspecified (principal); E10.9 Type 1 diabetes mellitus without complications; I10 Essential (primary) hypertension; Z95.828 Presence of other vascular implants and grafts; Z87.891 Personal history of nicotine dependence; Z79.02 Long term (current) use of antithrombotics/antiplatelets; Z79.4 Long term (current) use of insulin; Z79.899 Other long term (current) drug therapy; Z79.82 Long term (current) use of aspirin
CPT/HCPCS: 36415; 70450; 70496; 70498; 80053; 81003; 81015; 85025; 85610; 85730; 87086; 93005; 96360; 96361; 99284; Q9967